=== PATIENT | male | born 1995 | race Caucasian/White ===

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

== ENCOUNTER 2017-07-08 10:19 | Emergency (ER) | payer OTHER ==
--- NOTE | 2017-07-08 10:44 | EDPHY ---
H & P Time Seen by Provider: 07/08/17 10:39 HPI/ROS: CHIEF COMPLAINT: Left upper extremity injury HISTORY OF PRESENT ILLNESS: 22-year-old male presents to the emergency department with injury to his left upper extremity. The patient admits to drinking alcohol last evening and does not know how he injured himself. He does not think that he hit his head or lost consciousness. He woke up this morning and his left elbow and forearm are quite swollen has pain and difficulty moving them. He denies paresthesias in his upper extremities. Denies injury to the right upper extremity or lower extremities bilaterally. Denies neck or back pain. Denies chest pain or difficulty breathing. Denies abdominal pain. He states that he has a mild headache which he thinks is from being a bit hung over. He does not think that he hit his head. REVIEW OF SYSTEMS: Constitutional: No fever, no chills. Eyes: No double or blurry vision. ENT: No sore throat. Respiratory: No cough, no shortness of breath. Cardiac: No chest pain. Gastrointestinal: No abdominal pain, vomiting or diarrhea. Genitourinary: No dysuria. Musculoskeletal: No neck or back pain. Skin: Abrasions. No rashes. Neurological: Headache as above Past Medical/Surgical History: Negative Social History: [employer] student Smoking Status: Never smoked Physical Exam: General Appearance: Alert, no distress. No visible signs of trauma to his head. He is mentating normally and answering questions appropriately. Eyes: Pupils equal and round. Extraocular motions are all intact. ENT: Mouth: Mucous membranes moist. Respiratory: No wheezing, rhonchi, or rales, lungs are clear to auscultation. Cardiovascular: Regular rate and rhythm. Gastrointestinal: Abdomen is soft and nontender, no masses, no rebound or guarding, bowel sounds normal. Neurological: Alert and oriented x 3, cranial nerves II through XII grossly intact Skin: Superficial abrasions noted to the left forearm the medial and posterior aspect of the left elbow. Musculoskeletal: Nontender to palpate along the cervical, thoracic or lumbar spine. Neck is supple. Extremities: Abrasions as discussed above. Patient has limited extension of the left elbow secondary to pain and swelling. The tenderness with palpation proximal aspect of the left forearm and elbow. Unable to supinate secondary to pain. Nontender to palpate over the left wrist and left humeral head. Psychiatric: Patient is oriented X 3, there is no agitation. Constitutional: Initial Vital Signs Temperature (C) 36.7 C 07/08/17 10:25 Heart Rate 99 07/08/17 10:25 Respiratory Rate 16 07/08/17 10:25 Blood Pressure 124/85 H 07/08/17 10:25 O2 Sat (%) 96 07/08/17 10:25 O2 Delivery Mode Room Air Allergies/Adverse Reactions: No Known Allergies Allergy (Verified 07/08/17 10:23) Home Medications: Medication Instructions Recorded Dexmethylphenidate HCl 07/08/17 Medical Decision Making - Diagnostics Imaging Results: Imaging Impressions Elbow X-Ray 07/08/17 10:40 Impression: Mildly displaced angulated proximal ulnar diaphyseal fracture. Forearm X-Ray 07/08/17 10:40 Impression: Transverse mildly displaced angulated fracture of the proximal ulnar diaphysis. Imaging: I viewed and interpreted images myself Procedures: Patient was placed in long-arm Ortho Glass splint and sling and examined post application in good placement with normal [employer]. ED Course/Re-evaluation: 22-year-old male presents to the emergency department with left arm injury. X- rays reveal proximal left ulnar fracture with stood is mildly angulated and slightly displaced. The case was discussed with Dr. Carlos Germain, secondary supervising physician , who did not directly evaluate the patient but agrees with treatment and plan. He agrees with not consulting Orthopedics today. The patient's abrasions were thoroughly cleansed. No evidence of open fracture. Patient was placed in long-arm Ortho Glass splint and sling and was told to call Orthopedics today for follow-up appointment to be seen on Tuesday. Patient was comfortable with this plan. He will keep the splint on until seen by Orthopedics. Differential Diagnosis: Including but not limited to fracture, dislocation, contusion, sprain, open fracture - Data Points Medications Given: Discontinued Medications Ibuprofen (Motrin) 800 mg PO EDNOW ONE Stop: 07/08/17 11:44 Last Admin: 07/08/17 11:45 Dose: 800 mg Departure - Departure Disposition: Home, Routine, Self-Care Clinical Impression: Fracture of right proximal ulna Qualifiers: Encounter type: initial encounter Fracture type: closed Fracture morphology: unspecified fracture morphology Qualified Code(s): S52.001A - Unspecified fracture of upper end of right ulna, initial encounter for closed fracture Condition: Good Instructions: Elbow Fracture (ED), Abrasion (ED), Acute Wounds (ED) Additional Instructions: Keep splint and sling on until follow-up with orthopedic surgeon by Tuesday. When you call to arrange for follow-up appointment, tell them that you were seen in the emergency department and told to be seen for follow-up on Tuesday. Ibuprofen 600 mg every 8 hr as needed for pain. Ice and elevate to help relieve swelling. Referrals: Kiara Adams MD [Medical Doctor] - 2-3 days without fail (Orthopedic surgeon on- call)
[2017-07-08] MEDS ORDERED: IBUPROFEN 800 MG TAB PO ONE (11:43)
[2017-07-08 12:35] VITALS: BP 125/87
== END 2017-07-08 12:35 | disposition home or self-care (01) ==
PROC: 2W3BX1Z Immobilization of Left Upper Arm using Splint (ICD-10-PCS; principal; 2017-07-08)
DX: S52.221A Displaced transverse fracture of shaft of right ulna, initial encounter for closed fracture (principal); X58.XXXA Exposure to other specified factors, initial encounter; Y99.8 Other external cause status; Y93.89 Activity, other specified
CPT/HCPCS: A4565